=== PATIENT | female | born 1955 | race Caucasian/White ===

== ENCOUNTER 2017-08-04 19:54 | Emergency (ER) | payer MEDICAID ==
[2017-08-04] MEDS ORDERED: ONDANSETRON 4 MG TAB.RAPDIS PO ONE (20:50)
--- NOTE | 2017-08-04 20:50 | ER Document Report ---
ED Medical Screen (RME) - General Chief Complaint: Vomiting Stated Complaint: BLOOD PRESSURE PROBLEM Time Seen by Provider: 08/04/17 20:44 Mode of Arrival: Ambulatory Information source: Patient Notes: 62 year old female presents to ed for nausea and vomiting after eating seafood today. blood pressure high and headache. states she is feeling much better. vomiting has stop, headache is better, bp is now 161/80. I have greeted and performed a rapid initial assessment of this patient. A comprehensive ED assessment and evaluation of the patient, analysis of test results and completion of medical decision making process will be conducted by an additional ED providers. TRAVEL OUTSIDE OF THE [place] IN LAST 30 DAYS: No - Related Data Allergies/Adverse Reactions: codeine [Codeine] Allergy (Verified 05/11/13 21:55) Past Medical History - Past Medical History Cardiac Medical History: Reports: Hx Hypertension Endocrine Medical History: Reports: Hx Diabetes Mellitus Type 1, Hx Diabetes Mellitus Type 2 Past Surgical History: Reports: Hx Cholecystectomy, Hx Gynecologic Surgery - D& C in 98, Hx Hysterectomy, Hx Orthopedic Surgery - Bilat Carpal Tunnel - Immunizations Hx Diphtheria, Pertussis, Tetanus Vaccination: Yes Physical Exam - Vital signs Vitals: Temp Pulse Resp BP Pulse Ox 97.9 F 64 19 222/79 H 97 08/04/17 20:05 08/04/17 20:05 08/04/17 20:05 08/04/17 20:05 08/04/17 20:05 Course - Vital Signs Vital signs: Temp Pulse Resp BP Pulse Ox 97.9 F 64 14 181/109 H 98 08/04/17 20:05 08/04/17 20:05 08/04/17 21:34 08/04/17 21:33 08/04/17 21:34 - Laboratory Result Diagrams: 08/04/17 21:15 08/04/17 21:15 Laboratory results interpreted by me: 08/04/17 21:15 BUN 30 H Est GFR (Non-Af Amer) 49 L Glucose 208 H
[2017-08-04 21:27] LABS: ABSOLUTE BASOPHILS # (AUTO) 0.1 10^3/uL (0.0-0.2); ABSOLUTE EOSINOPHILS # (AUTO) 0.1 10^3/uL (0.0-0.6); ABSOLUTE LYMPHOCYTES (AUTO) 1.6 10^3/uL (0.5-4.7); ABSOLUTE MONOCYTES (AUTO) 0.3 10^3/uL (0.1-1.4); ABSOLUTE NEUT (AUTO) 5.7 10^3/uL (1.7-8.2); BASOPHILS % (AUTO) 0.7 % (0-2); EOSINOPHILS % (AUTO) 1.2 % (0-6); HEMATOCRIT 42.3 % (36.0-47.0); HEMOGLOBIN 14.3 g/dL (12.0-15.5); LYMPHOCYTES % (AUTO) 20.7 % (13-45); MEAN CORPUSCULAR HEMOGLOBIN 29.2 pg (27.0-33.4); MEAN CORPUSCULAR HGB CONC 33.7 g/dL (32.0-36.0); MEAN CORPUSCULAR VOLUME 87 fl (80-97); MONOCYTES % (AUTO) 3.6 % (3-13); PLATELET COUNT 266 10^3/uL (150-450); RED BLOOD COUNT 4.89 10^6/uL (3.72-5.28); RED CELL DISTRIBUTION WIDTH 13.1 % (11.5-14.0); SEGMENTED NEUTROPHILS % (AUTO) 73.8 % (42-78); TOTAL CELLS COUNTED % (AUTO) 100 %; WHITE BLOOD COUNT 7.8 10^3/uL (4.0-10.5)
[2017-08-04 21:46] LABS: ALANINE AMINOTRANSFERASE 19 U/L (9-52); ALBUMIN 3.9 g/dL (3.5-5.0); ALKALINE PHOSPHATASE 92 U/L (38-126); ANION GAP 11 (5-19); ASPARTATE AMINO TRANSFERASE 20 U/L (14-36); BILIRUBIN,DIRECT 0.1 mg/dL (0.0-0.4); BILIRUBIN,TOTAL 0.7 mg/dL (0.2-1.3); BLOOD UREA NITROGEN 30 mg/dL (7-20); CALCIUM 9.1 mg/dL (8.4-10.2); CARBON DIOXIDE 27 mmol/L (22-30); CHLORIDE 103 mmol/L (98-107); GLUCOSE 208 mg/dL (75-110); POTASSIUM 4.4 mmol/L (3.6-5.0); SODIUM 140.5 mmol/L (137-145); TOTAL PROTEIN 6.6 g/dL (6.3-8.2)
--- NOTE | 2017-08-04 22:18 | ER Document Report ---
ED General - General Chief Complaint: Vomiting Stated Complaint: BLOOD PRESSURE PROBLEM Time Seen by Provider: 08/04/17 20:44 Mode of Arrival: Ambulatory Notes: Patient says that she was at a [employer] function where people brought in food from home. Patient had some cold seafood, primarily shrimp, pasta salad that she took home and tried some in about 20 minutes later began to feel sick on her stomach and then she vomited 3-4 times. She now feels much better. Did not ever have diarrhea. Did not have any abdominal pains. Also no chest pains or shortness of breath. No fevers. Patient has no seafood allergies. Patient says she now feels much better and feels over what ever it was it was causing her to feel badly. Patient is an insulin-dependent diabetic. She has diabetic retinopathy and is legally blind. Patient also has insulin-dependent diabetes and diabetic retinopathy with legal blindness in both eyes. She has hypertension and just started taking 2.5 mg of Ramipril this past week. Says she has been under a lot of stress recently. Thinks that may have something to do with her blood pressure being high. TRAVEL OUTSIDE OF THE [place] IN LAST 30 DAYS: No - Related Data Allergies/Adverse Reactions: codeine [Codeine] Allergy (Verified 05/11/13 21:55) Past Medical History - General Information source: Patient - Social History Smoking Status: Unknown if Ever Smoked Chew tobacco use (# tins/day): No Frequency of alcohol use: None Drug Abuse: None Family History: Reviewed & Not Pertinent Patient has suicidal ideation: No Patient has homicidal ideation: No - Past Medical History Cardiac Medical History: Reports: Hx Hypertension Endocrine Medical History: Reports: Hx Diabetes Mellitus Type 1, Hx Diabetes Mellitus Type 2 Past Surgical History: Reports: Hx Cholecystectomy, Hx Gynecologic Surgery - D& C in 98, Hx Hysterectomy, Hx Orthopedic Surgery - Bilat Carpal Tunnel, Other - Cataract surgery - Immunizations Hx Diphtheria, Pertussis, Tetanus Vaccination: Yes Review of Systems - Review of Systems Notes: REVIEW OF SYSTEMS: CONSTITUTIONAL : Denies fever. EENT: Denies eye, ear, nose or mouth or throat pain or other symptoms. CARDIOVASCULAR: Denies chest pain. RESPIRATORY: Denies cough, chest congestion, or shortness of breath. GASTROINTESTINAL: See HPI. GENITOURINARY: Denies difficulty or painful urinating, urinary frequency, blood in urine. MUSCULOSKELETAL: Denies back or neck pain. Denies joint pain or swelling. SKIN: Denies rash or skin lesions. NEUROLOGICAL: Denies LOC or altered mental status. Denies headache. Denies sensory loss or motor deficits. ALL OTHER SYSTEMS REVIEWED AND NEGATIVE. Physical Exam - Vital signs Vitals: Temp Pulse Resp BP Pulse Ox 97.9 F 64 19 222/79 H 97 08/04/17 20:05 08/04/17 20:05 08/04/17 20:05 08/04/17 20:05 08/04/17 20:05 Interpretation: Hypertensive - Notes Notes: PHYSICAL EXAMINATION: GENERAL: Well-appearing, in no acute distress. Says she feels much better. Blood pressures come down to systolic in the 180s. No longer nauseated. HEAD: Atraumatic, normocephalic. EYES: Pupils equal round and reactive to light, extraocular movements intact. ENT: oropharynx clear without exudates. Moist mucous membranes. NECK: Normal range of motion, supple. LUNGS: Breath sounds clear and equal bilaterally. HEART: Regular rate and rhythm without murmurs. ABDOMEN: Soft, nontender. No guarding or rebound. No masses. BACK: No tenderness throughout entire back. EXTREMITIES: Normal range of motion without pain. NEUROLOGICAL: Normal speech, normal gait. Normal sensory, motor, and reflex exams. Awake, alert, and oriented x3. Cranial nerves normal. PSYCH: Normal mood, normal affect. SKIN: Warm, dry, no rashes. Course - Re-evaluation Re-evalutation: 08/04/17 22:29 Nurse reports that patient's blood pressure, which had come down to 180s, was now back over 200 systolic. Patient says she still feels fine and wishes to go home. She cannot drive and she has an elderly gentleman with her who is supposed to drive them both home at this late hour. I am going to give the patient 0.2 mg of clonidine here and told her to contact her primary care provider tomorrow morning to let them know about her blood pressure and medications and see if they want to increase the dose of the ramipril that she is currently taking. - Vital Signs Vital signs: Temp Pulse Resp BP Pulse Ox 98.0 F 64 12 188/79 H 98 08/04/17 22:25 03/19/18 20:05 08/04/17 22:25 08/04/17 22:25 08/04/17 22:25 - Laboratory Result Diagrams: 08/04/17 21:15 08/04/17 21:15 Laboratory results interpreted by me: 08/04/17 08/04/17 21:15 21:42 BUN 30 H Est GFR (Non-Af Amer) 49 L Glucose 208 H Urine Protein >=500 H Urine Glucose (UA) 50 H Discharge - Discharge Clinical Impression: Food poisoning, Hypertension Condition: Stable Disposition: HOME, SELF-CARE Additional Instructions: VOMITING: Vomiting (or nausea without vomiting) can be caused by many other different problems. It can mean that something's wrong with the stomach, such as ulcers or inflammation or the intestinal tract, such as appendicitis. But it can also be a symptom of a problem that has nothing to do with the stomach or intestines. Vomiting is common with severe headaches, earaches, tonsillitis, and kidney infections, etc. We see it with pneumonia or heart attacks. Drugs can cause nausea and vomiting. Many abdominal problems cause vomiting; for example, gallstones, kidney stones, pancreatitis, and intestinal obstruction ( blocked bowels). In most cases, curing the vomiting depends on fixing the problem that caused it. For temporary relief, we may use an anti-nausea medicine. For home use, we can prescribe suppositories, chewable pills, pills that dissolve in the mouth, or liquid anti-nausea drugs. If the vomiting seems to be caused by a problem in the stomach, acid-suppressing drugs may be prescribed as well. It's important to avoid dehydration. Sip small amounts of clear liquids ( soft drinks, tea, broth, etc) . Try to take fluids frequently even if you are vomiting to prevent dehydration. Take increasing amounts of fluid and when liquids are being consumed successfully, advance to small amounts of bland food (toast, soups, mashed potatoes, etc.) until you are able to resume a regular diet. Avoid aspirin, tobacco, and alcohol. If the vomiting worsens, if the problem that's making you vomit worsens, or if there's evidence of bleeding in the stomach (such as black, tarry stool, or bloody or black vomit), you should return immediately. Also, return if abdominal pain worsens or becomes localized to one area or you develop high fever. Call your doctor if you aren't improved in 24 hours. Food Poisoning Your symptoms appear to be due to food poisoning. Food poisoning is due to bacterial poisons in food. It occurs when bacteria (usually staph) get into food, then have time to grow before the food is eaten. Symptoms usually begin about an hour after the contaminated food is eaten -- typically abdominal cramps , vomiting, and diarrhea. Refrigeration of food usually prevents food poisoning. Food poisoning usually resolves within a few hours without treatment. The bowel should be rested: nothing by mouth for about four hours, then frequent sips of clear liquids for another six to eight hours. Further treatment may be required for severe or prolonged vomiting, dehydration, or severe abdominal cramping. Call the doctor or come back if symptoms do not resolve within 24 hours, or if you worsen in any way -- for example you develop worsening pain, high fever, or blood in the stools. ANTINAUSEA MEDICATION: You have been given a medication to suppress nausea and vomiting. This type of medication can be given as a shot, pill, or suppository. It will usually last for many hours. Pills and shots usually last six to eight hours. For the typical illness, only one or two doses of the medication may be necessary. Mild lightheadedness may occur. This type of medicine can cause drowsiness. Do not drive or operate dangerous machinery while under its influence. Do not mix with alcohol. See your doctor at once if you have muscle spasms or tightness, or uncontrollable motions (particularly of the neck, mouth, or jaw). Persistent vomiting or severe lightheadedness should also be evaluated by the physician. FOLLOW-UP CARE: If you have been referred to a physician for follow-up care, call the physician s office for an appointment as you were instructed or within the next two days. If you experience worsening or a significant change in your symptoms, notify the physician immediately or return to the Emergency Department at any time for re-evaluation. Referrals: ILDEFONSO CARR MD [Primary Care Provider] - Follow up as needed
[2017-08-04 22:23] LABS: APPEARANCE,URINE CLEAR; BILIRUBIN,URINE NEGATIVE (NEGATIVE); COLOR,URINE YELLOW; GLUCOSE, URINE 50 mg/dL (NEGATIVE); KETONES,URINE NEGATIVE (NEGATIVE); LEUKOCYTE ESTERASE,URINE NEGATIVE (NEGATIVE); NITRITE,URINE NEGATIVE (NEGATIVE); PROTEIN,URINE >=500 mg/dL (NEGATIVE); URINE SPECIFIC GRAVITY 1.013; UROBILINOGEN,URINE NEGATIVE mg/dL (<2.0)
[2017-08-04] MEDS ORDERED: CLONIDINE HCL 0.2 MG TABLET PO ONE (22:26)
[2017-08-04 23:02] VITALS: BP 188/79
== END 2017-08-04 22:50 | disposition home or self-care (01) ==
LOC: ER 19:54
DX: T62.91XA Toxic effect of unspecified noxious substance eaten as food, accidental (unintentional), initial encounter (principal); I10 Essential (primary) hypertension; R11.10 Vomiting, unspecified; E11.9 Type 2 diabetes mellitus without complications; Y92.22 Religious institution as the place of occurrence of the external cause; Z79.4 Long term (current) use of insulin; Z79.899 Other long term (current) drug therapy; Z90.49 Acquired absence of other specified parts of digestive tract
CPT/HCPCS: 99283; 36415; 85025; 80053; 81001; J3490; S0119

== ENCOUNTER → 2017-10-30 | Outpatient (CLI) | payer MEDICAID ==
[2017-10-30 11:52] LABS: ABSOLUTE EOSINOPHILS # (AUTO) 0.2 10^3/uL (0.0-0.6); ABSOLUTE LYMPHOCYTES (AUTO) 1.9 10^3/uL (0.5-4.7); ABSOLUTE MONOCYTES (AUTO) 0.4 10^3/uL (0.1-1.4); BASOPHILS % (AUTO) 0.5 % (0-2); EOSINOPHILS % (AUTO) 2.6 % (0-6); HEMATOCRIT 39.6 % (36.0-47.0); HEMOGLOBIN 13.5 g/dL (12.0-15.5); LYMPHOCYTES % (AUTO) 29.7 % (13-45); MEAN CORPUSCULAR HEMOGLOBIN 29.8 pg (27.0-33.4); MEAN CORPUSCULAR HGB CONC 34.2 g/dL (32.0-36.0); MEAN CORPUSCULAR VOLUME 87 fl (80-97); MONOCYTES % (AUTO) 5.9 % (3-13); PLATELET COUNT 265 10^3/uL (150-450); RED BLOOD COUNT 4.54 10^6/uL (3.72-5.28); RED CELL DISTRIBUTION WIDTH 12.8 % (11.5-14.0); SEGMENTED NEUTROPHILS % (AUTO) 61.3 % (42-78); TOTAL CELLS COUNTED % (AUTO) 100 %; WHITE BLOOD COUNT 6.5 10^3/uL (4.0-10.5)
[2017-10-30 11:58] LABS: APPEARANCE,URINE CLEAR; BILIRUBIN,URINE NEGATIVE (NEGATIVE); COLOR,URINE YELLOW; GLUCOSE, URINE 50 mg/dL (NEGATIVE); KETONES,URINE NEGATIVE (NEGATIVE); LEUKOCYTE ESTERASE,URINE NEGATIVE (NEGATIVE); NITRITE,URINE NEGATIVE (NEGATIVE); PROTEIN,URINE >=500 mg/dL (NEGATIVE); URINE SPECIFIC GRAVITY 1.012; UROBILINOGEN,URINE NEGATIVE mg/dL (<2.0)
[2017-10-30 12:16] LABS: ALANINE AMINOTRANSFERASE 22 U/L (9-52); ALBUMIN 3.8 g/dL (3.5-5.0); ALKALINE PHOSPHATASE 68 U/L (38-126); ANION GAP 8 (5-19); ASPARTATE AMINO TRANSFERASE 15 U/L (14-36); BILIRUBIN,DIRECT 0.1 mg/dL (0.0-0.4); BILIRUBIN,TOTAL 0.7 mg/dL (0.2-1.3); BLOOD UREA NITROGEN 28 mg/dL (7-20); CARBON DIOXIDE 27 mmol/L (22-30); CHLORIDE 106 mmol/L (98-107); GLUCOSE 164 mg/dL (75-110); POTASSIUM 5.2 mmol/L (3.6-5.0); SODIUM 140.5 mmol/L (137-145); TOTAL PROTEIN 6.2 g/dL (6.3-8.2)
[2017-10-30 12:18] LABS: URINE CREATININE 84.7 mg/dL (15-278)
[2017-10-30 12:28] LABS: URINE PROTEIN 336.2 mg/dL (<12)
== END ==
LOC: OD 10:39
PROVIDERS: ATTEND Internal Medicine Nephrology
DX: E11.22 Type 2 diabetes mellitus with diabetic chronic kidney disease (principal); I12.9 Hypertensive chronic kidney disease with stage 1 through stage 4 chronic kidney disease, or unspecified chronic kidney disease; N18.3 Chronic kidney disease, stage 3 (moderate); R80.9 Proteinuria, unspecified
CPT/HCPCS: 36415; 80053; 81001; 82570; 83735; 84156; 85025

== ENCOUNTER → 2017-10-30 | Outpatient (CLI) | payer MEDICAID ==
--- NOTE | 2017-10-30 13:29 | RADIOLOGY REPORT (SQ) ---
EXAM DESCRIPTION: U/S RETROPERITON LTD COMPLETED DATE/TIME: 10/30/2017 11:50 am REASON FOR STUDY: CHRONIC KIDNEY DISEASE, STAGE 3 (MODERATE) N18.3 CHRONIC KIDNEY DISEASE, STAGE 3 (MODERATE) R80.9 PROTEINURIA, UNSPECIFIED COMPARISON: None. TECHNIQUE: Dynamic and static grayscale images acquired of the kidneys and bladder and recorded on P ACS. Additional selected color Doppler and spectral images recorded. LIMITATIONS: None. FINDINGS: RIGHT KIDNEY: 9.6 cm in length with diffuse mild increased cortical echogenicity and diff use cortical thinning. No stones. No hydronephrosis. No masses. Subcentimeter cysts in the right upper pole and mid pole kidney. LEFT KIDNEY: 10.2 cm in length with diffuse mild increased cortical echogenicity and diffuse cortica l thinning. No stones. No hydronephrosis. No masses. 1 cm cyst left mid pole kidney. BLADDER: Incompletely distended. No bladder stones or gross mucosal masses. Ureteral jets were not identified. OTHER FINDINGS: No other significant finding. IMPRESSION: Cortical thinning and increased echogenicity both kidneys, from medical renal disease. No hydronephrosis. TECHNICAL DOCUMENTATION: JOB ID: [id number] [employer]- All Rights Reserved Reading location - IP/workstation name: [email or web address]
== END ==
LOC: RAD 11:17
PROVIDERS: ATTEND Internal Medicine Nephrology
DX: E11.22 Type 2 diabetes mellitus with diabetic chronic kidney disease (principal); I12.9 Hypertensive chronic kidney disease with stage 1 through stage 4 chronic kidney disease, or unspecified chronic kidney disease; N18.3 Chronic kidney disease, stage 3 (moderate); R80.9 Proteinuria, unspecified
CPT/HCPCS: 76775

== ENCOUNTER 2019-01-10 10:48 | Emergency (ER) | payer MEDICAID ==
[2019-01-10] MEDS ORDERED: IBUPROFEN 600 MG TABLET PO ONE (12:08)
--- NOTE | 2019-01-10 12:11 | ER Document Report ---
ED Medical Screen (RME) - General Chief Complaint: Fall Stated Complaint: RIB AND HAND PAIN Time Seen by Provider: 01/10/19 12:08 Primary Care Provider: Trell BARAJAS MD [Primary Care Provider] - Follow up as needed Mode of Arrival: Ambulatory Information source: Patient Notes: 63-year-old female presented to ED for complaint of pain to the right hand wrist and ribs. She states she fell landing on her right side. She does have bruising swelling and tenderness to the right rib and hand. She states she does not take medications and there is no since writing her prescriptions. She states she would not of come to the emergency room but the people at [facility] insisted that she come to the emergency room to be evaluated. Patient is alert oriented respirations regular and unlabored speaking in full sentences walks with even steady gait. I have greeted and performed a rapid initial assessment of this patient. A comprehensive ED assessment and evaluation of the patient, analysis of test results and completion of medical decision making process will be conducted by an additional ED providers. TRAVEL OUTSIDE OF THE [place] IN LAST 30 DAYS: No - Related Data Allergies/Adverse Reactions: codeine [Codeine] Allergy (Verified 05/11/13 21:55) Past Medical History - Past Medical History Cardiac Medical History: Reports: Hx Hypertension Endocrine Medical History: Reports: Hx Diabetes Mellitus Type 1, Hx Diabetes Mellitus Type 2 Renal/ Medical History: Denies: Hx Peritoneal Dialysis Past Surgical History: Reports: Hx Cholecystectomy, Hx Gynecologic Surgery - D&C in 98, Hx Hysterectomy, Hx Orthopedic Surgery - Bilat Carpal Tunnel, Other - Cataract surgery - Immunizations Hx Diphtheria, Pertussis, Tetanus Vaccination: Yes Physical Exam - Vital signs Vitals: Temp Pulse Resp BP Pulse Ox 97.8 F 59 L 18 170/61 H 96 01/10/19 11:04 01/10/19 11:04 01/10/19 11:04 01/10/19 11:04 01/10/19 11:04 Course - Vital Signs Vital signs: Temp Pulse Resp BP Pulse Ox 97.8 F 59 L 18 170/61 H 96 01/10/19 11:04 01/10/19 11:04 01/10/19 11:04 01/10/19 11:04 01/10/19 11:04 Doctor's Discharge - Discharge Referrals: Trell BARAJAS MD [Primary Care Provider] - Follow up as needed
--- NOTE | 2019-01-10 13:28 | RADIOLOGY REPORT (SQ) ---
EXAM DESCRIPTION: HAND RIGHT 3 VIEWS COMPLETED DATE/TIME: 01/10/2019 1:07 pm REASON FOR STUDY: fall pain and bruising COMPARISON: None. EXAM PARAMETERS: NUMBER OF VIEWS: Three views. TECHNIQUE: AP, lateral and oblique radiographic images acquired of the right hand. LIMITATIONS: None. FINDINGS: MINERALIZATION: Normal. BONES: Nondisplaced fracture ulnar aspect of the distal 5th metacarpal shaft. JOINTS: No effusions. SOFT TISSUES: No soft tissue swelling. No foreign body. OTHER: No other significant finding. IMPRESSION: Nondisplaced fracture 5th metacarpal. TECHNICAL DOCUMENTATION: JOB ID: [id number] [employer]- All Rights Reserved Reading location - IP/workstation name: [email or web address]
--- NOTE | 2019-01-10 13:37 | RADIOLOGY REPORT (SQ) ---
EXAM DESCRIPTION: RIBS RIGHT W/PA CHEST COMPLETED DATE/TIME: 01/10/2019 1:11 pm REASON FOR STUDY: fall pain and bruising COMPARISON: Chest x-ray 11/20/2009 TECHNIQUE: Frontal view of the chest and additional views of the right ribs acquired. NUMBER OF VIEWS: Four view. LIMITATIONS: None. FINDINGS: FRONTAL CXR: No pneumothorax. No pleural effusion. No atelectasis or infiltrates. Surgi gretel clips are noted at the right upper quadrant. RIBS: No displaced right rib fractures. IMPRESSION: NO PNEUMOTHORAX. NO DISPLACED RIGHT RIB FRACTURES. COMMENT: SITE OF TRAUMA/COMPLAINT MARKED/STAMP COMPLETED: NO. TECHNICAL DOCUMENTATION: JOB ID: [id number] 2010 [employer]- All Rights Reserved Reading location - IP/workstation name: [email or web address]
--- NOTE | 2019-01-10 14:36 | ER Document Report ---
HPI - HPI Time Seen by Provider: 01/10/19 12:08 Pain Level: 5 Context: Patient is a 63-year-old female with a history of type 2 diabetes, hypertension, who is legally blind, who presents to the emergency department with a chief complaint of right hand pain and right rib pain. Patient states last night around 11 PM she was helping her neighbor transfer out of the wheelchair when he began to fall. Patient states she was pushed up against a wall by his body weight. Patient reports she had a crush injury to the right hand and ribs. Patient states the rib pain is worse with deep breath. Patient reports she does have a bruise to the right lower ribs. Patient denies shortness of breath or chest pain. Patient also complains of bruising to the right lateral aspect of her hand. Patient states she has taken ibuprofen with some relief. Patient denies obvious deformity. Patient denies head injury or loss of consciousness. - REPRODUCTIVE Reproductive: DENIES: : - DERM Skin Color: Normal, [place] Past Medical History - General Information source: Patient - Social History Smoking Status: Never Smoker Frequency of alcohol use: None Drug Abuse: None Lives with: Family Family History: Reviewed & Not Pertinent Patient has suicidal ideation: No Patient has homicidal ideation: No - Past Medical History Cardiac Medical History: Reports: Hx Hypertension Pulmonary Medical History: Reports: None EENT Medical History: Reports: None Neurological Medical History: Reports: None Endocrine Medical History: Reports: Hx Diabetes Mellitus Type 1, Hx Diabetes Mellitus Type 2 Renal/ Medical History: Reports: None. Denies: Hx Peritoneal Dialysis Malignancy Medical History: Reports: None GI Medical History: Reports: None Musculoskeletal Medical History: Reports None Skin Medical History: Reports None Psychiatric Medical History: Reports: None Traumatic Medical History: Reports: None Infectious Medical History: Reports: None Past Surgical History: Reports: Hx Cholecystectomy, Hx Gynecologic Surgery - D&C in 98, Hx Hysterectomy, Hx Orthopedic Surgery - Bilat Carpal Tunnel, Other - Cataract surgery - Immunizations Hx Diphtheria, Pertussis, Tetanus Vaccination: Yes Vertical Provider Document - CONSTITUTIONAL Agree With Documented VS: Yes Exam Limitations: No Limitations General Appearance: No Apparent Distress Notes: GENERAL: Well-appearing, well-nourished and in no acute distress. HEAD: Atraumatic, normocephalic. EYES: Extraocular movements intact, sclera anicteric, conjunctiva are normal. ENT: Nares patent, oropharynx clear without exudates. Moist mucous membranes. NECK: Normal range of motion, supple without lymphadenopathy or JVD. LUNGS: Breath sounds clear to auscultation bilaterally and equal. No wheezes rales or rhonchi. Small amount of ecchymosis to the right lateral lower ribs. There is no crepitus with palpation or obvious subcutaneous emphysema. HEART: Regular rate and rhythm without murmurs, rubs or gallops. ABDOMEN: Soft, nontender, normoactive bowel sounds. No guarding, no rebound. No masses appreciated. BACK: No cervical, thoracic, lumbar midline tenderness. No saddle anesthesia, normal distal neurovascular exam. GENITOURINARY: Deferred. EXTREMITIES: There is ecchymosis and mild swelling to the right lateral aspect of the hand. Patient is unable to make a fist as this does induce pain. Patient has + 2 strong radial pulse, < 2 sec cap refill, no obvious deformity. Patient able to make an okay sign and thumbs up. Sensation is intact distal to the injury. NEUROLOGICAL: Cranial nerves II through XII grossly intact. Normal speech, normal gait. PSYCH: Normal mood, normal affect. SKIN: Warm, Dry, normal turgor, no rashes or lesions noted. - INFECTION CONTROL TRAVEL OUTSIDE OF THE [place] IN LAST 30 DAYS: No Course - Re-evaluation Re-evalutation: 01/10/19 14:[address] patient in a splint and given strict return precautions. Patient aware that she must follow-up with orthopedics for further evaluation. I have given her three different referrals for her. I did offer pain medication prescription as well as 800 mg ibuprofen. Patient states she does not want this as she would not take it. Patient states she will just take Advil or Tylenol as needed. Patient no acute distress and nontoxic-appearing. - Vital Signs Vital signs: Temp Pulse Resp BP Pulse Ox 97.8 F 59 L 18 170/61 H 96 01/10/19 11:04 01/10/19 11:04 01/10/19 11:04 01/10/19 11:04 01/10/19 11:04 Procedures - Immobilization Right Lower Arm Time completed: 15:00 Pre-Proc Neuro Vasc Exam: Normal Immobilizer type: Ulnar Performed by: PCT Post-Proc Neuro Vasc Exam: Normal, Unchanged from pre-exam Alignment checked and good: Yes Notes: 01/10/19 15:19 Sling provided for comfort and to aide in elevation. Discharge - Discharge Clinical Impression: Metacarpal bone fracture Qualifiers: Encounter type: initial encounter Metacarpal bone: fifth Fracture type: closed Metacarpal location: other portion of metacarpal Fracture alignment: nondisplaced Laterality: right Qualified Code(s): S62.396A - Other fracture of fifth metacarpal bone, right hand, initial encounter for closed fracture Condition: Stable Disposition: HOME, SELF-CARE Additional Instructions: Today you were seen in the emergency department after a fall injury. The x-ray of your chest and ribs do not show an acute fracture or abnormality. Your symptoms are consistent with the rib contusion. Avoid any strenuous activity but do continue to cough and take breaths at least every hour or 2 to prevent lung complications such as pneumonia. You also have a fracture of the metacarpal in the right hand. You have been placed in a splint. This is a temporary splint that can be removed by orthopedics. Please ice and elevate your hand to help with swelling and discomfort. Please take Tylenol or ibuprofen as needed for pain. Please return to the emergency department for any change in symptoms such as swelling or continued pain that is severe, if numbness develops, if you have discoloration or pill to blue fingers. In regards to the rib contusion please return to the emergency department if you develop fever, persistent cough, coughing up blood, shortness of breath or increasing pain. Rib Contusion You have been diagnosed as having bruised ribs. It will usually take a few weeks for these injured ribs to heal. You should cough or take a deep breath at least every hour or two to prevent lung complications. You should not engage in any strenuous physical activity until released by your physician. The usual rule is "if it hurts, don't do it." Return if you develop any of the following: (1) Fever or chills. (2) Persistent cough, coughing up blood, or shortness of breath. (3) Increasing pain. (4) Weakness, lightheadedness, or fainting. Fractured Metacarpal You have broken a metacarpal bone in the hand. The fracture is usually caused by hitting the hand against a hard surface, but can also be caused by jamming a finger. At first the injury should be rested, elevated, and ice packed. The usual treatment is splinting for four to six weeks. For some patients, a cast is preferable. The physician will advise you. It's important to avoid any twisting or jamming of the fingers while the fracture is healing. Force on the fingers can make the fracture move. Usually, one or two fingers are included in the splint or cast. Sometimes fingers are taped instead -- in this case, extra caution to prevent a twisting of the fingers is necessary. Call the doctor or come back if swelling or pain become severe, if numbness develops, or if you suspect you may have disturbed the fracture. Referrals: SEBLE KILLIAN MD [ACTIVE PROVISIONAL STAFF] - Follow up as needed KELLEY GRAHAM DO [ACTIVE STAFF] - Follow up as needed GENNA GONZALEZ MD [ACTIVE STAFF] - Follow up as needed
[2019-01-10 15:40] VITALS: BP 141/70
== END 2019-01-10 15:40 | disposition home or self-care (01) ==
LOC: ER 10:48
DX: S62.396A Other fracture of fifth metacarpal bone, right hand, initial encounter for closed fracture (principal); R07.81 Pleurodynia; W23.1XXA Caught, crushed, jammed, or pinched between stationary objects, initial encounter; Y93.F2 Activity, caregiving, lifting; H54.8 Legal blindness, as defined in USA; I10 Essential (primary) hypertension; E11.9 Type 2 diabetes mellitus without complications; Z90.49 Acquired absence of other specified parts of digestive tract; Z90.710 Acquired absence of both cervix and uterus
CPT/HCPCS: 99283; 73130; 71101; 29125; J3490

== ENCOUNTER 2019-11-28 11:38 | Emergency (ER) | payer MEDICAID ==
[2019-11-28] MEDS ORDERED: NORMAL SALINE 1000 ML 1,000 ML IV PRN (12:25)
--- NOTE | 2019-11-28 12:26 | ER Document Report ---
ED Medical Screen (RME) - General Chief Complaint: Dizziness Stated Complaint: DIZZINESS,ANXIOUS Time Seen by Provider: 11/28/19 12:21 Information source: Patient Notes: This 64-year-old female with a history of diabetes who presents to the emergency room today stating that she awoke this morning and had some vertigo nausea vomiting no chest pain or shortness of breath TRAVEL OUTSIDE OF THE [place] IN LAST 30 DAYS: No - Related Data Allergies/Adverse Reactions: codeine [Codeine] Allergy (Verified 11/28/19 12:20) Past Medical History - Past Medical History Cardiac Medical History: Reports: Hx Hypertension Endocrine Medical History: Reports: Hx Diabetes Mellitus Type 1, Hx Diabetes Mellitus Type 2 Renal/ Medical History: Denies: Hx Peritoneal Dialysis Past Surgical History: Reports: Hx Cholecystectomy, Hx Gynecologic Surgery - D&C in 98, Hx Hysterectomy, Hx Orthopedic Surgery - Bilat Carpal Tunnel, Other - Cataract surgery - Immunizations Hx Diphtheria, Pertussis, Tetanus Vaccination: Yes Physical Exam - Vital signs Vitals: Temp Pulse Resp BP Pulse Ox 97.8 F 60 20 155/65 H 99 11/28/19 11:47 11/28/19 11:47 11/28/19 11:47 11/28/19 11:47 11/28/19 11:47 Course - Vital Signs Vital signs: Temp Pulse Resp BP Pulse Ox 97.8 F 60 20 155/65 H 99 11/28/19 11:47 11/28/19 11:47 11/28/19 11:47 11/28/19 11:47 11/28/19 11:47
[2019-11-28 13:09] LABS: ABSOLUTE LYMPHOCYTES (AUTO) 1.2 10^3/uL (0.5-4.7); ABSOLUTE MONOCYTES (AUTO) 0.2 10^3/uL (0.1-1.4); ABSOLUTE NEUT (AUTO) 5.8 10^3/uL (1.7-8.2); BASOPHILS % (AUTO) 0.2 % (0-2); EOSINOPHILS % (AUTO) 0.2 % (0-6); HEMATOCRIT 44.3 % (36.0-47.0); HEMOGLOBIN 15.1 g/dL (12.0-15.5); LYMPHOCYTES % (AUTO) 16.7 % (13-45); MEAN CORPUSCULAR HEMOGLOBIN 30.7 pg (27.0-33.4); MEAN CORPUSCULAR HGB CONC 34.2 g/dL (32.0-36.0); MEAN CORPUSCULAR VOLUME 90 fl (80-97); MONOCYTES % (AUTO) 2.2 % (3-13); PLATELET COUNT 266 10^3/uL (150-450); RED BLOOD COUNT 4.92 10^6/uL (3.72-5.28); RED CELL DISTRIBUTION WIDTH 12.5 % (11.5-14.0); SEGMENTED NEUTROPHILS % (AUTO) 80.7 % (42-78); TOTAL CELLS COUNTED % (AUTO) 100 %; WHITE BLOOD COUNT 7.2 10^3/uL (4.0-10.5)
[2019-11-28 13:19] LABS: APPEARANCE,URINE SLIGHTLY-CLOUDY; BILIRUBIN,URINE NEGATIVE (NEGATIVE); COLOR,URINE YELLOW; GLUCOSE, URINE NEGATIVE (NEGATIVE); KETONES,URINE NEGATIVE (NEGATIVE); LEUKOCYTE ESTERASE,URINE SMALL (NEGATIVE); NITRITE,URINE NEGATIVE (NEGATIVE); PROTEIN,URINE 30 mg/dL (NEGATIVE); URINE SPECIFIC GRAVITY 1.017; UROBILINOGEN,URINE NEGATIVE mg/dL (<2.0)
[2019-11-28 13:30] LABS: ALBUMIN 4.4 g/dL (3.5-5.0); ALKALINE PHOSPHATASE 67 U/L (38-126); ANION GAP 6 (5-19); ASPARTATE AMINO TRANSFERASE 28 U/L (14-36); BILIRUBIN,TOTAL 0.8 mg/dL (0.2-1.3); BLOOD UREA NITROGEN 53 mg/dL (7-20); CALCIUM 9.1 mg/dL (8.4-10.2); CARBON DIOXIDE 23 mmol/L (22-30); CHLORIDE 109 mmol/L (98-107); GLUCOSE 198 mg/dL (75-110); POTASSIUM 5.1 mmol/L (3.6-5.0); TOTAL PROTEIN 7.1 g/dL (6.3-8.2)
[2019-11-28] MEDS ORDERED: MECLIZINE HCL 25 MG TABLET PO ONE (14:03)
--- NOTE | 2019-11-28 14:04 | ER Document Report ---
ED General - General Chief Complaint: Dizziness Stated Complaint: DIZZINESS,ANXIOUS Time Seen by Provider: 11/28/19 12:21 Notes: HPI: Patient is a 64-year-old female that presents today stating she awoke and felt as if the room was "spinning". No history of vertigo. She denies any and all headache, neck pain, chest pain, palpitations, darion pain, nausea, vomiting, fevers, or recent upper respiratory tract infections. She did have nausea and vomiting x1. She states that the symptoms have somewhat improved. She denies any focal weakness or numbness. ROS: See HPI All other review of systems reviewed and otherwise negative Reviewed vital signs and nursing note as charted by RN. PHYSICAL EXAM: CONSTITUTIONAL: Alert and oriented and responds appropriately to questions. Well-appearing; well-nourished HEAD: Normocephalic; atraumatic EYES: PERRL; full extraocular range of motion; no nystagmus ENT: Normal nose; no rhinorrhea; moist mucous membranes; pharynx without lesions noted NECK: Supple without meningismus; no carotid bruit; non-tender; no cervical lymphadenopathy, no masses CARD: Regular rate and rhythm; no murmurs; symmetric distal pulses RESP: Normal chest excursion without splinting or tachypnea; breath sounds clear and equal bilaterally ABD/GI: Normal bowel sounds; non-distended; soft, non-tender; no palpable organomegaly or masses BACK: The back appears normal and is non-tender to palpation EXT: Normal ROM in all joints; non-tender to palpation; no edema SKIN: No acute lesions noted NEURO: CN 2-12 intact; 5/5 bilateral upper and lower extremity strength with sensation intact to light touch; no nystagmus PSYCH: The patient's mood and manner are appropriate. Grooming and personal hygiene are appropriate. TRAVEL OUTSIDE OF THE [place] IN LAST 30 DAYS: No - Related Data Allergies/Adverse Reactions: codeine [Codeine] Allergy (Verified 11/28/19 12:20) Past Medical History - General Information source: Patient - Social History Smoking Status: Never Smoker Frequency of alcohol use: None Drug Abuse: None Family History: Reviewed & Not Pertinent Patient has homicidal ideation: No - Past Medical History Cardiac Medical History: Reports: Hx Hypertension Pulmonary Medical History: Reports: Hx Tuberculosis - as a baby Endocrine Medical History: Reports: Hx Diabetes Mellitus Type 1, Hx Diabetes Mellitus Type 2 Renal/ Medical History: Denies: Hx Peritoneal Dialysis Past Surgical History: Reports: Hx Cholecystectomy, Hx Gynecologic Surgery - D&C in 98, Hx Hysterectomy, Hx Orthopedic Surgery - Bilat Carpal Tunnel, Other - Cataract surgery - Immunizations Hx Diphtheria, Pertussis, Tetanus Vaccination: Yes Physical Exam - Vital signs Vitals: Temp Pulse Resp BP Pulse Ox 97.8 F 60 20 155/65 H 99 11/28/19 11:47 11/28/19 11:47 11/28/19 11:47 11/28/19 11:47 11/28/19 11:47 Course - Re-evaluation Re-evalutation: Given the history and physical examination, with no headache, no carotid bruits, no nystagmus present, we will proceed with basic labs, EKG, obtain an MRI of the brain to evaluate for the possibility of a posterior stroke. I do not believe it is necessary to go directly to CT initially as I do believe an acute hemorrhage to be unlikely and should also be visualized on MRI. We do have quick access to MRI here at this facility. Patient has no nystagmus I am unable to perform his examination at this time. No focal weakness or numbness. Patient awoke with the symptoms and has an NIH score only of 1. I do not believe the patient is a TPA candidate at this time. 11/28/19 14:02 Patient symptoms have improved. I will provide meclizine. Awaiting imaging. 11/28/19 14:05 EKG shows heart of 64, normal sinus rhythm, poor wave progression, no obvious ST elevation or depression. Q waves in leads III and aVF 11/28/19 15:50 Patient still has no nystagmus or focal logical deficits. Patient denies any dizziness at this time. Urinalysis shows the possibility of infection. Urine culture has been sent. MRI of the brain shows no obvious bleed or posterior circulation strokes. Patient will be discharged home with strict return precautions and follow-up with the primary care physician. - Vital Signs Vital signs: Temp Pulse Resp BP Pulse Ox 97.8 F 60 20 155/65 H 99 11/28/19 12:21 11/28/19 11:47 11/28/19 11:47 11/28/19 11:47 11/28/19 11:47 - Laboratory Result Diagrams: 11/28/19 12:37 11/28/19 12:37 Laboratory results interpreted by me: 11/28/19 11/28/19 11/28/19 12:37 12:37 12:37 [place] % (Auto) 2.2 L Seg Neutrophils % 80.7 H Potassium 5.1 H Chloride 109 H BUN 53 H Est GFR ( Amer) 55 L Est GFR (MDRD) Non-Af 46 L Glucose 198 H ALT 38 H Urine Protein 30 H Ur Leukocyte Esterase SMALL H Urine Ascorbic Acid 20 H Discharge - Discharge Clinical Impression: Vertigo, Leukocytes in urine Condition: Good Disposition: HOME, SELF-CARE Additional Instructions: Come back immediately for any worsening symptoms, weakness or numbness, confusion, fever, acute headache, double or blurry vision, or any other acute problems. Please make sure that she follow-up with the primary care physician as discussed take the meclizine as needed. Please complete the course of antibiotics and follow-up with the urine culture results. Prescriptions: Meclizine HCl [Antivert 25 mg Tablet] 25 mg PO TID PRN #21 tablet PRN Reason: Cephalexin Monohydrate [Keflex 500 mg Capsule] 500 mg PO Q8H 7 Days #21 capsule
--- NOTE | 2019-11-28 15:19 | RADIOLOGY REPORT (SQ) ---
EXAM DESCRIPTION: MRI HEAD WITHOUT IMAGES COMPLETED DATE/TIME: 11/28/2019 2:48 pm REASON FOR STUDY: 18; elderly, vertigo COMPARISON: None. TECHNIQUE: Multiplanar imaging includes non-contrasted T1, T2, FLAIR, and diffusion with ADC map seq uences. Images stored on PACS. LIMITATIONS: None. FINDINGS: ANATOMY: No anomalies. Normal vascular flow voids. Pituitary fossa normal. CSF SPACES: Normal in size and contour. No hemorrhage. CEREBRUM: Sulci and gyri normal in size and contour. 2 punctate foci of T2 prolongation within the w chris matter are not unexpected findings and of doubtful clinical significance. No evidence of signif icant microvascular ischemic or involutional changes. No evidence of hemorrhage, mass, or extraaxial fluid collection. POSTERIOR FOSSA: No signal alteration. No hemorrhage. No edema, masses or mass effect. Internal watler tory canals, cerebello-pontine angles, mastoids normal. DIFFUSION IMAGING: Negative for acute or sub-acute infarction. ORBITS: No masses. Globes normal. PARANASAL SINUSES: No fluid levels. Mucosa normal. OTHER: No other significant finding. IMPRESSION: NORMAL MRI OF THE BRAIN WITHOUT INTRAVENOUS GADOLINIUM CONTRAST. EVIDENCE OF ACUTE STROKE: NO. TECHNICAL DOCUMENTATION: JOB ID: [id number] [employer]- All Rights Reserved Reading location - IP/workstation name: [email or web address]
[2019-11-28] MEDS ORDERED: CEFTRIAXONE 1 GM/D5W RTU 1 GM/50 ML RTUPB IV ONE (15:50)
[2019-11-28 16:28] VITALS: BP 166/69
--- NOTE | 2019-11-28 19:11 | EKG REPORT ---
SEVERITY:- ABNORMAL ECG - SINUS RHYTHM NONSPECIFIC INTRAVENTRICULAR CONDUCTION DELAY LEFT VENTRICULAR HYPERTROPHY : Confirmed by: Yony Russell MD 28-Nov-2019 19:10:34
== END 2019-11-28 16:27 | disposition home or self-care (01) ==
LOC: ER 11:38
DX: R42 Dizziness and giddiness (principal); D72.829 Elevated white blood cell count, unspecified; F41.9 Anxiety disorder, unspecified; R11.2 Nausea with vomiting, unspecified; I10 Essential (primary) hypertension; E11.9 Type 2 diabetes mellitus without complications
CPT/HCPCS: 93005; 99284; 96361; 96365; 36415; 85025; 80053; 81001; 84484; 70551; 93010; J7030; J0696